=== PATIENT | female | born 1935 | race Caucasian/White ===

== ENCOUNTER 2018-12-05 00:05 | Observation (INO) | payer MEDICARE ==
[2018-12-05] MEDS ORDERED: Nitroglycerin 0.4 MG Tab.SL SL ONE (01:00)
--- NOTE | 2018-12-05 01:04 | EDM.PDOC ---
ED HPI GENERAL MEDICAL PROBLEM - General Chief Complaint: Neurological Problem Stated Complaint: CONFUSION Time Seen by Provider: 12/05/18 00:54 Source of Information: Reports: Patient, EMS, RN Notes Reviewed History Limitations: Reports: Physical Impairment - History of Present Illness INITIAL COMMENTS - FREE TEXT/NARRATIVE: 83-year-old female presents emergency department today via EMS services, she was found standing outside 8 is less than 20 she believes she was waiting for the bus. There is some question of underlying dementia discussion with family members they are planning to get her into an assisted living facility this week. She complains of body pain all over Right Upper Abdomen Pain Score (Numeric/FACES): 4 - Related Data Allergies Allergy/AdvReac Type Severity Reaction Status Date / Time atorvastatin [From Lipitor] Allergy Cannot Verified 12/05/18 01:24 Remember naproxen AdvReac Itching Verified 12/05/18 01:24 Home Meds: Home Meds Aspirin 81 mg PO DAILY 12/05/18 [History] Donepezil HCl [Aricept] 10 mg PO BEDTIME 12/05/18 [History] Loratadine [Claritin] 10 mg PO DAILY PRN 12/05/18 [History] Memantine HCl [Namenda] 10 mg PO DAILY 12/05/18 [History] Metoprolol Tartrate [Lopressor] 50 mg PO DAILY 12/05/18 [History] Potassium Chloride [Klor-Con M20] 20 meq PO DAILY 12/05/18 [History] Simvastatin [Zocor] 80 mg PO DAILY 12/05/18 [History] amLODIPine Besylate [Norvasc] 5 mg PO DAILY 12/05/18 [History] guaiFENesin [Mucinex] 600 mg PO Q12H PRN 12/05/18 [History] Past Medical History Cardiovascular History: Reports: Hypertension Neurological History: Reports: Other (See Below) (Dementia) Social & Family History - Tobacco Use Smoking Status *Q: Former Smoker Used Tobacco, but Quit: Yes Month/Year Tobacco Last Used: 09/1960 Second Hand Smoke Exposure: No - Caffeine Use Caffeine Use: Reports: Coffee - Recreational Drug Use Recreational Drug Use: No ED ROS GENERAL - Review of Systems Review Of Systems: Unable To Obtain ED EXAM, NEURO - Physical Exam Exam: See Below Text/Narrative:: General: Elderly female not in any distress, alert and oriented x1 HEENT: head is atraumatic normocephalic, eyes pupils equal round reactive to light, sclera clear no conjunctivitis appreciated. Ears tympanic membranes clear and fam landmarks and light reflex are present bilaterally canals are clear. Nose no septal deviation, nares are clear, no blood present. Mouth mucosa is moist and pink no erythema or exudate noted in soft palate, tongue is midline uvula is midline, dentures in place. Neck: Supple no thyromegaly no tracheal deviation. Nodes: Cervical nodes subclavicular nodes nontender no palpable lymphadenopathy noted. Lungs: clear to auscultation bilaterally with symmetrical respirations, no adventitious noise appreciated. CV: Regular rate and rhythm S1 and S2 appreciated no murmurs rubs or gallops noted. Abdomen: Soft, nontender, no palpable masses or organomegaly appreciated, no distention no guarding bowel sounds are present, Neuro: Cranial nerves II through XII intact, GCS 15 Skin: Warm and dry, intact Extremities: No lower extremity edema appreciated, Course - Vital Signs Last Recorded V/S: Last Vital Signs Temp 95 F L 12/05/18 01:17 Pulse 77 12/05/18 01:17 Resp 16 12/05/18 01:17 BP 163/74 H 12/05/18 01:17 Pulse Ox 93 L 12/05/18 01:17 - Orders/Labs/Meds Labs: Laboratory Tests 12/05/18 12/05/18 12/05/18 Range/Units 00:59 00:59 01:05 WBC 6.2 (4.5-11.0) K/uL RBC 4.10 (3.30-5.50) M/uL Hgb 11.8 L (12.0-15.0) g/dL Hct 38.0 (36.0-48.0) % MCV 93 (80-98) fL MCH 29 (27-31) pg MCHC 31 L (32-36) % Plt Count 189 (150-400) K/uL Neut % (Auto) 68 H (36-66) % Lymph % (Auto) 21 L (24-44) % Ellis % (Auto) 7 H (2-6) % Eos % (Auto) 3 (2-4) % Baso % (Auto) 1 (0-1) % Sodium (140-148) mmol/L Potassium (3.6-5.2) mmol/L Chloride (100-108) mmol/L Carbon Dioxide (21-32) mmol/L Anion Gap (5.0-14.0) mmol/L BUN (7-18) mg/dL Creatinine (0.6-1.0) mg/dL Est Cr Clr Drug Dosing mL/min Estimated GFR (MDRD) (>60) Glucose (74-106) mg/dL Lactic Acid (0.4-2.0) mmol/L Calcium (8.5-10.1) mg/dL Total Bilirubin (0.2-1.0) mg/dL AST (15-37) U/L ALT (12-78) U/L Alkaline Phosphatase (46-116) U/L Ammonia (11-32) mmol/L Troponin I (0.000-0.056) ng/mL Total Protein (6.4-8.2) g/dL Albumin (3.4-5.0) g/dL Globulin (2.3-3.5) g/dL Albumin/Globulin Ratio (1.2-2.2) Lipase (73-393) U/L TSH, Ultra Sensitive (0.358-3.740) uIU/mL Urine Color Yellow Urine Appearance Clear Urine pH 7.0 (4.5-8.0) Ur Specific [place] 1.010 (1.008-1.030) Urine Protein Negative (NEGATIVE) mg/dL Urine Glucose (UA) Normal (NEGATIVE) mg/dL Urine Ketones Negative (NEGATIVE) mg/dL Urine Occult Blood Negative (NEGATIVE) Urine Nitrite Negative (NEGATIVE) Urine Bilirubin Negative (NEGATIVE) Urine Urobilinogen Normal (NORMAL) mg/dL Ur Leukocyte Esterase Negative (NEGATIVE) Urine RBC 0-5 (0-5) Urine WBC 0-5 (0-5) Ur Epithelial Cells Not seen Amorphous Sediment Not seen Urine Bacteria Few Urine Mucus Not seen Urine Opiates Screen Negative (NEGATIVE) Ur Oxycodone Screen Negative (NEGATIVE) Urine Methadone Screen Negative (NEGATIVE) Ur Propoxyphene Screen Negative (NEGATIVE) Ur Barbiturates Screen Negative (NEGATIVE) Ur Tricyclics Screen Negative (NEGATIVE) Ur Phencyclidine Scrn Negative (NEGATIVE) Ur Amphetamine Screen Negative (NEGATIVE) U Methamphetamines Scrn Negative (NEGATIVE) Urine MDMA Screen Negative (NEGATIVE) U Benzodiazepines Scrn Negative (NEGATIVE) U Cocaine Metab Screen Negative (NEGATIVE) U Marijuana (THC) Screen Negative (NEGATIVE) Ethyl Alcohol mg/dL 12/05/18 12/05/18 12/05/18 Range/Units 01:05 01:05 01:05 WBC (4.5-11.0) K/uL RBC (3.30-5.50) M/uL Hgb (12.0-15.0) g/dL Hct (36.0-48.0) % MCV (80-98) fL MCH (27-31) pg MCHC (32-36) % Plt Count (150-400) K/uL Neut % (Auto) (36-66) % Lymph % (Auto) (24-44) % Ellis % (Auto) (2-6) % Eos % (Auto) (2-4) % Baso % (Auto) (0-1) % Sodium 140 (140-148) mmol/L Potassium 3.3 L (3.6-5.2) mmol/L Chloride 103 (100-108) mmol/L Carbon Dioxide 31 (21-32) mmol/L Anion Gap 9.3 (5.0-14.0) mmol/L BUN 15 (7-18) mg/dL Creatinine 1.1 H (0.6-1.0) mg/dL Est Cr Clr Drug Dosing 30.11 mL/min Estimated GFR (MDRD) 47 L (>60) Glucose 128 H (74-106) mg/dL Lactic Acid 1.4 (0.4-2.0) mmol/L Calcium 8.8 (8.5-10.1) mg/dL Total Bilirubin 0.3 (0.2-1.0) mg/dL AST 25 (15-37) U/L ALT 18 (12-78) U/L Alkaline Phosphatase 95 (46-116) U/L Ammonia 8 L (11-32) mmol/L Troponin I 0.032 (0.000-0.056) ng/mL Total Protein 6.5 (6.4-8.2) g/dL Albumin 3.2 L (3.4-5.0) g/dL Globulin 3.3 (2.3-3.5) g/dL Albumin/Globulin Ratio 1.0 L (1.2-2.2) Lipase 182 (73-393) U/L TSH, Ultra Sensitive 1.540 (0.358-3.740) uIU/mL Urine Color Urine Appearance Urine pH (4.5-8.0) Ur Specific [place] (1.008-1.030) Urine Protein (NEGATIVE) mg/dL Urine Glucose (UA) (NEGATIVE) mg/dL Urine Ketones (NEGATIVE) mg/dL Urine Occult Blood (NEGATIVE) Urine Nitrite (NEGATIVE) Urine Bilirubin (NEGATIVE) Urine Urobilinogen (NORMAL) mg/dL Ur Leukocyte Esterase (NEGATIVE) Urine RBC (0-5) Urine WBC (0-5) Ur Epithelial Cells Amorphous Sediment Urine Bacteria Urine Mucus Urine Opiates Screen (NEGATIVE) Ur Oxycodone Screen (NEGATIVE) Urine Methadone Screen (NEGATIVE) Ur Propoxyphene Screen (NEGATIVE) Ur Barbiturates Screen (NEGATIVE) Ur Tricyclics Screen (NEGATIVE) Ur Phencyclidine Scrn (NEGATIVE) Ur Amphetamine Screen (NEGATIVE) U Methamphetamines Scrn (NEGATIVE) Urine MDMA Screen (NEGATIVE) U Benzodiazepines Scrn (NEGATIVE) U Cocaine Metab Screen (NEGATIVE) U Marijuana (THC) Screen (NEGATIVE) Ethyl Alcohol mg/dL 12/05/18 Range/Units 01:05 WBC (4.5-11.0) K/uL RBC (3.30-5.50) M/uL Hgb (12.0-15.0) g/dL Hct (36.0-48.0) % MCV (80-98) fL MCH (27-31) pg MCHC (32-36) % Plt Count (150-400) K/uL Neut % (Auto) (36-66) % Lymph % (Auto) (24-44) % Ellis % (Auto) (2-6) % Eos % (Auto) (2-4) % Baso % (Auto) (0-1) % Sodium (140-148) mmol/L Potassium (3.6-5.2) mmol/L Chloride (100-108) mmol/L Carbon Dioxide (21-32) mmol/L Anion Gap (5.0-14.0) mmol/L BUN (7-18) mg/dL Creatinine (0.6-1.0) mg/dL Est Cr Clr Drug Dosing mL/min Estimated GFR (MDRD) (>60) Glucose (74-106) mg/dL Lactic Acid (0.4-2.0) mmol/L Calcium (8.5-10.1) mg/dL Total Bilirubin (0.2-1.0) mg/dL AST (15-37) U/L ALT (12-78) U/L Alkaline Phosphatase (46-116) U/L Ammonia (11-32) mmol/L Troponin I (0.000-0.056) ng/mL Total Protein (6.4-8.2) g/dL Albumin (3.4-5.0) g/dL Globulin (2.3-3.5) g/dL Albumin/Globulin Ratio (1.2-2.2) Lipase (73-393) U/L TSH, Ultra Sensitive (0.358-3.740) uIU/mL Urine Color Urine Appearance Urine pH (4.5-8.0) Ur Specific [place] (1.008-1.030) Urine Protein (NEGATIVE) mg/dL Urine Glucose (UA) (NEGATIVE) mg/dL Urine Ketones (NEGATIVE) mg/dL Urine Occult Blood (NEGATIVE) Urine Nitrite (NEGATIVE) Urine Bilirubin (NEGATIVE) Urine Urobilinogen (NORMAL) mg/dL Ur Leukocyte Esterase (NEGATIVE) Urine RBC (0-5) Urine WBC (0-5) Ur Epithelial Cells Amorphous Sediment Urine Bacteria Urine Mucus Urine Opiates Screen (NEGATIVE) Ur Oxycodone Screen (NEGATIVE) Urine Methadone Screen (NEGATIVE) Ur Propoxyphene Screen (NEGATIVE) Ur Barbiturates Screen (NEGATIVE) Ur Tricyclics Screen (NEGATIVE) Ur Phencyclidine Scrn (NEGATIVE) Ur Amphetamine Screen (NEGATIVE) U Methamphetamines Scrn (NEGATIVE) Urine MDMA Screen (NEGATIVE) U Benzodiazepines Scrn (NEGATIVE) U Cocaine Metab Screen (NEGATIVE) U Marijuana (THC) Screen (NEGATIVE) Ethyl Alcohol < 3 mg/dL Meds: Medications Discontinued Medications Generic Name Dose Route Start Last Admin Trade Name Freq PRN Reason Stop Dose Admin Nitroglycerin 0.4 mg 12/05/18 01:00 12/05/18 01:09 Nitrostat SL 12/05/18 01:01 0.4 mg ONETIME ONE Administration Departure - Departure Time of Disposition: 03:05 Disposition: Refer to Observation Condition: Poor Clinical Impression: Dementia Qualifiers: Dementia type: unspecified type Dementia behavioral disturbance: without behavioral disturbance Qualified Code(s): F03.90 - Unspecified dementia without behavioral disturbance - Discharge Information Referrals: PCP,None [Primary Care Provider] - Forms: ED Department Discharge - Assessment/Plan Plan: Assessment Acuity = acute Site and laterality = dementia Etiology = unknown etiology Manifestations = none Location of injury = Home Lab values = CBC, CMP, TSH, urinalysis, urine drug screen, alcohol, CT scan of the head show no acute process Plan Called discussed case with hospitalist talent acquisition coordinator at 3:00 he agreed to admission plan is to see her in the hospital she will be admitted for observation no family members are present will have discharge planning work on placement later today This note was dictated using [employer] voice recognition software please call with any questions on syntax or grammar.
--- NOTE | 2018-12-05 01:54 | CRLCT ---
INDICATION: Altered mental status COMPARISON: None available. TECHNIQUE: CT examination of the head was performed with 3 mm thick axial sections without intravenous contrast. Images were obtained from the vertex of the skull through the skull base, and I examined the images with the brain and bone windows. Please note that all CT scans at this facility use dose modulation, iterative reconstruction, and/or weight-based dosing when appropriate to reduce radiation dose to as low as reasonably achievable. FINDINGS: : The brain is normal in appearance for the patient`s age on today`s study, with no sign of mass lesion, mass effect, hemorrhage, or edema. There is moderate dilatation of the ventricles and sulci representing age-appropriate atrophy. There is moderate periventricular and subcortical white matter hypodensity from age appropriate small vessel ischemia. The visualized portions of the orbits are normal in appearance status post cataract surgery. The visualized portions of the paranasal sinuses and mastoids are clear. The osseous structures are normal in their appearance with no sign of abnormality in the skull base or calvarium. IMPRESSION: Normal noncontrast CT of the head for the patient`s age. Moderate, age-appropriate atrophy and small-vessel ischemic changes. Please note that all CT scans at this facility use dose modulation, iterative reconstruction, and/or weight-based dosing when appropriate to reduce radiation dose to as low as reasonably achievable. Dictated by Rayshawn Jeffrey MD @ Dec 05 2018 1:50AM Signed by Dr. Rayshawn Jeffrey @ Dec 05 2018 1:52AM
[2018-12-05] MEDS ORDERED: diphenhydrAMINE 25 MG Cap PO PRN (03:09)
[2018-12-05] MEDS ORDERED: Simvastatin 20 MG Tab PO SCH (09:00)
[2018-12-05] MEDS ORDERED: Metoprolol Tartrate 50 MG Tab PO SCH (09:00)
[2018-12-05] MEDS: Metoprolol Tartrate 25 MG Tab PO SCH (09:42)
[2018-12-05] MEDS: amLODIPine 5 MG Tab PO SCH (09:43)
[2018-12-05] MEDS: Aspirin 81 MG Tab.EC PO SCH (09:43)
[2018-12-05] MEDS: Potassium Chloride 20 MEQ Tab.ER PO SCH (09:43)
[2018-12-05] MEDS: Memantine 10 MG Tab PO SCH (09:44)
--- NOTE | 2018-12-05 09:58 | PCM.HP ---
H&P History of Present Illness - General Date of Service: 12/05/18 Admit Problem/Dx: Admission Diagnosis/Problem Admission Diagnosis/Problem Dementia Source of Information: Patient, Family, Provider History Limitations: Reports: Other (dementia) - History of Present Illness Initial Comments - Free Text/Narative: Sharon presented to the emergency room from her apartment where she was found standing outside last night allegedly waiting for the bus. She has what appears to be fairly advanced dementia and has difficulty providing much of the history. Her memory for recent events is extremely limited. She does not recall much from yesterday but does say that she was standing out waiting for the bus. She does endorse being dressed appropriately. She had no idea that it was 11 PM on Thursday night and thought it was 11 AM on Thursday morning. She says that she feels fine and wants to go home. No complaints of shortness of breath or abdominal pain. She doesn't think she's had any fevers. She thinks everything is going just fine at home. I did talk to her [id number] Leighann who felt that things were going very poorly at home. She believes that things have gone downhill over the last 2 months especially. Family reports that she has been outside going through people's cars looking for an imaginary friend. She has had several falls. They don't believe this is the first time she's had her times mixed up waiting for the bus. I don't believe she's been taking her medications and her blood pressure was very high at 230 last night when she got here. Workup in the emergency room was fairly unremarkable. She was thought to be very unsafe to discharge to home so she was admitted for observation and discharge planning. Right Upper Abdomen Pain Score (Numeric/FACES): 0 - Related Data Allergies/Adverse Reactions: Allergies Allergy/AdvReac Type Severity Reaction Status Date / Time atorvastatin [From Lipitor] Allergy Cannot Verified 12/05/18 01:24 Remember naproxen AdvReac Itching Verified 12/05/18 01:24 Home Medications: Home Meds Aspirin 81 mg PO DAILY 12/05/18 [History] Donepezil HCl [Aricept] 10 mg PO BEDTIME 12/05/18 [History] Loratadine [Claritin] 10 mg PO DAILY PRN 12/05/18 [History] Memantine HCl [Namenda] 10 mg PO DAILY 12/05/18 [History] Metoprolol Tartrate [Lopressor] 50 mg PO DAILY 12/05/18 [History] Potassium Chloride [Klor-Con M20] 20 meq PO DAILY 12/05/18 [History] Simvastatin [Zocor] 80 mg PO DAILY 12/05/18 [History] amLODIPine Besylate [Norvasc] 5 mg PO DAILY 12/05/18 [History] guaiFENesin [Mucinex] 600 mg PO Q12H PRN 12/05/18 [History] Past Medical History HEENT History: Reports: Allergic Rhinitis, Cataract, Impaired Vision Cardiovascular History: Reports: Hypertension Other Cardiovascular History: subclavian artery stenosis, aortic stenosis, iliac artery stenosis, carotid stenosis Respiratory History: Reports: COPD [employer]PER[employer]OR DIALS History: Reports: Musculoskeletal History: Reports: Arthritis Neurological History: Reports: Other (See Below) Psychiatric History: Reports: Dementia Endocrine/Metabolic History: Reports: Vitamin D Deficiency - Past Surgical History HEENT Surgical History: Reports: Cataract Surgery GI Surgical History: Reports: Appendectomy Musculoskeletal Surgical History: Reports: Hip Replacement, Knee Replacement, Shoulder Surgery Other Musculoskeletal Surgeries/Procedures:: rotator cuff surg Social & Family History - Family History Family Medical History: Unobtainable - Tobacco Use Smoking Status *Q: Unknown Ever Smoked Used Tobacco, but Quit: Yes Month/Year Tobacco Last Used: 09/1960 Second Hand Smoke Exposure: No - Caffeine Use Caffeine Use: Reports: Coffee - Alcohol Use Alcohol Use History: No - Recreational Drug Use Recreational Drug Use: No H&P Review of Systems - Review of Systems: Review Of Systems: See Below Free Text/Narrative: A complete 12 point review of systems was obtained. Pertinent positives and negatives are noted in the history of present illness. All other systems were reviewed and were negative except as noted. She did answer the questions but I' m not sure of the validity of the answers. Exam - Exam Exam: See Below - Vital Signs Vital Signs: Last Vital Signs Temp 36.3 C 12/05/18 07:24 Pulse 58 L 12/05/18 09:42 Resp 16 12/05/18 07:24 BP 185/67 H 12/05/18 09:43 Pulse Ox 90 L 12/05/18 07:24 Weight: 56.245 kg - Exam Quality Assessment: No: Supplemental Oxygen General: Alert, Cooperative. No: Oriented, Mild Distress HEENT: Conjunctiva Clear, Mucosa Moist & [place]. No: Scleral Icterus Neck: Supple. No: Lymphadenopathy Lungs: Clear to Auscultation, Normal Respiratory Effort Cardiovascular: Regular Rate, Regular Rhythm, Systolic Murmur (LLSB) GI/Abdominal Exam: Normal Bowel Sounds, Soft, Non-Tender, No Distention Back Exam: Normal Inspection Extremities: No Pedal Edema. No: Increased Warmth Peripheral Pulses: 2+: Dorsalis Pedis (L), Dorsalis Pedis (R) Skin: Warm, Dry Neuro Extensive - Mental Status: Alert, Nl Response to Commands. No: Oriented x3 Neuro Extensive - Motor, Sensory, Reflexes: No: Dysarthria, Abnormal Motor, Tremor Psychiatric: Alert, Normal Affect, Other (memory loss, recent events) - Patient Data Lab Results Last 24 hrs: Laboratory Results - last 24 hr 12/05/18 12/05/18 12/05/18 Range/Units 00:59 00:59 01:05 WBC 6.2 (4.5-11.0) K/uL RBC 4.10 (3.30-5.50) M/uL Hgb 11.8 L (12.0-15.0) g/dL Hct 38.0 (36.0-48.0) % MCV 93 (80-98) fL MCH 29 (27-31) pg MCHC 31 L (32-36) % Plt Count 189 (150-400) K/uL Neut % (Auto) 68 H (36-66) % Lymph % (Auto) 21 L (24-44) % [place] % (Auto) 7 H (2-6) % Eos % (Auto) 3 (2-4) % Baso % (Auto) 1 (0-1) % Sodium (140-148) mmol/L Potassium (3.6-5.2) mmol/L Chloride (100-108) mmol/L Carbon Dioxide (21-32) mmol/L Anion Gap (5.0-14.0) mmol/L BUN (7-18) mg/dL Creatinine (0.6-1.0) mg/dL Est Cr Clr Drug Dosing mL/min Estimated GFR (MDRD) (>60) Glucose (74-106) mg/dL Lactic Acid (0.4-2.0) mmol/L Calcium (8.5-10.1) mg/dL Total Bilirubin (0.2-1.0) mg/dL AST (15-37) U/L ALT (12-78) U/L Alkaline Phosphatase (46-116) U/L Ammonia (11-32) mmol/L Troponin I (0.000-0.056) ng/mL Total Protein (6.4-8.2) g/dL Albumin (3.4-5.0) g/dL Globulin (2.3-3.5) g/dL Albumin/Globulin Ratio (1.2-2.2) Lipase (73-393) U/L TSH, Ultra Sensitive (0.358-3.740) uIU/mL Urine Color Yellow Urine Appearance Clear Urine pH 7.0 (4.5-8.0) Ur Specific Renick 1.010 (1.008-1.030) Urine Protein Negative (NEGATIVE) mg/dL Urine Glucose (UA) Normal (NEGATIVE) mg/dL Urine Ketones Negative (NEGATIVE) mg/dL Urine Occult Blood Negative (NEGATIVE) Urine Nitrite Negative (NEGATIVE) Urine Bilirubin Negative (NEGATIVE) Urine Urobilinogen Normal (NORMAL) mg/dL Ur Leukocyte Esterase Negative (NEGATIVE) Urine RBC 0-5 (0-5) Urine WBC 0-5 (0-5) Ur Epithelial Cells Not seen Amorphous Sediment Not seen Urine Bacteria Few Urine Mucus Not seen Urine Opiates Screen Negative (NEGATIVE) Ur Oxycodone Screen Negative (NEGATIVE) Urine Methadone Screen Negative (NEGATIVE) Ur Propoxyphene Screen Negative (NEGATIVE) Ur Barbiturates Screen Negative (NEGATIVE) Ur Tricyclics Screen Negative (NEGATIVE) Ur Phencyclidine Scrn Negative (NEGATIVE) Ur Amphetamine Screen Negative (NEGATIVE) U Methamphetamines Scrn Negative (NEGATIVE) Urine MDMA Screen Negative (NEGATIVE) U Benzodiazepines Scrn Negative (NEGATIVE) U Cocaine Metab Screen Negative (NEGATIVE) U Marijuana (THC) Screen Negative (NEGATIVE) Ethyl Alcohol mg/dL 12/05/18 12/05/18 12/05/18 Range/Units 01:05 01:05 01:05 WBC (4.5-11.0) K/uL RBC (3.30-5.50) M/uL Hgb (12.0-15.0) g/dL Hct (36.0-48.0) % MCV (80-98) fL MCH (27-31) pg MCHC (32-36) % Plt Count (150-400) K/uL Neut % (Auto) (36-66) % Lymph % (Auto) (24-44) % [place] % (Auto) (2-6) % Eos % (Auto) (2-4) % Baso % (Auto) (0-1) % Sodium 140 (140-148) mmol/L Potassium 3.3 L (3.6-5.2) mmol/L Chloride 103 (100-108) mmol/L Carbon Dioxide 31 (21-32) mmol/L Anion Gap 9.3 (5.0-14.0) mmol/L BUN 15 (7-18) mg/dL Creatinine 1.1 H (0.6-1.0) mg/dL Est Cr Clr Drug Dosing 30.11 mL/min Estimated GFR (MDRD) 47 L (>60) Glucose 128 H (74-106) mg/dL Lactic Acid 1.4 (0.4-2.0) mmol/L Calcium 8.8 (8.5-10.1) mg/dL Total Bilirubin 0.3 (0.2-1.0) mg/dL AST 25 (15-37) U/L ALT 18 (12-78) U/L Alkaline Phosphatase 95 (46-116) U/L Ammonia 8 L (11-32) mmol/L Troponin I 0.032 (0.000-0.056) ng/mL Total Protein 6.5 (6.4-8.2) g/dL Albumin 3.2 L (3.4-5.0) g/dL Globulin 3.3 (2.3-3.5) g/dL Albumin/Globulin Ratio 1.0 L (1.2-2.2) Lipase 182 (73-393) U/L TSH, Ultra Sensitive 1.540 (0.358-3.740) uIU/mL Urine Color Urine Appearance Urine pH (4.5-8.0) Ur Specific Renick (1.008-1.030) Urine Protein (NEGATIVE) mg/dL Urine Glucose (UA) (NEGATIVE) mg/dL Urine Ketones (NEGATIVE) mg/dL Urine Occult Blood (NEGATIVE) Urine Nitrite (NEGATIVE) Urine Bilirubin (NEGATIVE) Urine Urobilinogen (NORMAL) mg/dL Ur Leukocyte Esterase (NEGATIVE) Urine RBC (0-5) Urine WBC (0-5) Ur Epithelial Cells Amorphous Sediment Urine Bacteria Urine Mucus Urine Opiates Screen (NEGATIVE) Ur Oxycodone Screen (NEGATIVE) Urine Methadone Screen (NEGATIVE) Ur Propoxyphene Screen (NEGATIVE) Ur Barbiturates Screen (NEGATIVE) Ur Tricyclics Screen (NEGATIVE) Ur Phencyclidine Scrn (NEGATIVE) Ur Amphetamine Screen (NEGATIVE) U Methamphetamines Scrn (NEGATIVE) Urine MDMA Screen (NEGATIVE) U Benzodiazepines Scrn (NEGATIVE) U Cocaine Metab Screen (NEGATIVE) U Marijuana (THC) Screen (NEGATIVE) Ethyl Alcohol mg/dL 12/05/18 Range/Units 01:05 WBC (4.5-11.0) K/uL RBC (3.30-5.50) M/uL Hgb (12.0-15.0) g/dL Hct (36.0-48.0) % MCV (80-98) fL MCH (27-31) pg MCHC (32-36) % Plt Count (150-400) K/uL Neut % (Auto) (36-66) % Lymph % (Auto) (24-44) % [place] % (Auto) (2-6) % Eos % (Auto) (2-4) % Baso % (Auto) (0-1) % Sodium (140-148) mmol/L Potassium (3.6-5.2) mmol/L Chloride (100-108) mmol/L Carbon Dioxide (21-32) mmol/L Anion Gap (5.0-14.0) mmol/L BUN (7-18) mg/dL Creatinine (0.6-1.0) mg/dL Est Cr Clr Drug Dosing mL/min Estimated GFR (MDRD) (>60) Glucose (74-106) mg/dL Lactic Acid (0.4-2.0) mmol/L Calcium (8.5-10.1) mg/dL Total Bilirubin (0.2-1.0) mg/dL AST (15-37) U/L ALT (12-78) U/L Alkaline Phosphatase (46-116) U/L Ammonia (11-32) mmol/L Troponin I (0.000-0.056) ng/mL Total Protein (6.4-8.2) g/dL Albumin (3.4-5.0) g/dL Globulin (2.3-3.5) g/dL Albumin/Globulin Ratio (1.2-2.2) Lipase (73-393) U/L TSH, Ultra Sensitive (0.358-3.740) uIU/mL Urine Color Urine Appearance Urine pH (4.5-8.0) Ur Specific Renick (1.008-1.030) Urine Protein (NEGATIVE) mg/dL Urine Glucose (UA) (NEGATIVE) mg/dL Urine Ketones (NEGATIVE) mg/dL Urine Occult Blood (NEGATIVE) Urine Nitrite (NEGATIVE) Urine Bilirubin (NEGATIVE) Urine Urobilinogen (NORMAL) mg/dL Ur Leukocyte Esterase (NEGATIVE) Urine RBC (0-5) Urine WBC (0-5) Ur Epithelial Cells Amorphous Sediment Urine Bacteria Urine Mucus Urine Opiates Screen (NEGATIVE) Ur Oxycodone Screen (NEGATIVE) Urine Methadone Screen (NEGATIVE) Ur Propoxyphene Screen (NEGATIVE) Ur Barbiturates Screen (NEGATIVE) Ur Tricyclics Screen (NEGATIVE) Ur Phencyclidine Scrn (NEGATIVE) Ur Amphetamine Screen (NEGATIVE) U Methamphetamines Scrn (NEGATIVE) Urine MDMA Screen (NEGATIVE) U Benzodiazepines Scrn (NEGATIVE) U Cocaine Metab Screen (NEGATIVE) U Marijuana (THC) Screen (NEGATIVE) Ethyl Alcohol < 3 mg/dL Result Diagrams: 12/05/18 01:05 12/05/18 01:05 Imaging Impressions Last 24 hrs: Head CT - images personally reviewed - no acute findings. No mass, bleed or stroke. *Q Meaningful Use (ADM) - VTE Risk Assess *Q Each Risk Factor Represents 1 Point: None Total Score 1 Point Risk Factors: 0 Each Risk Factor Represents 2 Points: None Total Score 2 Point Risk Factors: 0 Each Risk Factor Represents 3 Points: Age 75 Years or Greater Total Score 3 Point Risk Factors: 3 Each Risk Factor Represents 5 Points: None Total Score 5 Point Risk Factors: 0 Venous Thromboembolism Risk Factor Score *Q: 3 - Problem List (1) Alzheimer's dementia with behavioral disturbance SNOMED Code(s): 1297075821538 ICD Code: G30.9 - ALZHEIMER'S DISEASE, UNSPECIFIED; F02.81 - DEMENTIA IN OTH DISEASES CLASSD ELSWHR W BEHAVIORAL DISTURB Status: Acute Current Visit: Yes Qualifiers: Alzheimer's disease onset: late-onset Qualified Code(s): G30.1 - Alzheimer' s disease with late onset; F02.81 - Dementia in other diseases classified elsewhere with behavioral disturbance (2) Essential hypertension SNOMED Code(s): 94839455 ICD Code: I10 - ESSENTIAL (PRIMARY) HYPERTENSION Status: Chronic Current Visit: Yes Problem List Initiated/Reviewed/Updated: Yes Orders Last 24hrs: Active Orders 24 hr Category Date Time Status Patient Status [ADT] Routine ADT 12/05/18 03:07 Active Antiembolic Devices [RC] .Routine Care 12/05/18 08:10 Active Height and Weight [RC] DAILY Care 12/05/18 03:07 Active Intake and Output [RC] QSHIFT Care 12/05/18 03:08 Active Oxygen Therapy [RC] PRN Care 12/05/18 03:07 Active Up With Assistance [RC] ASDIRECTED Care 12/05/18 03:07 Active VTE/DVT Education [RC] Per Unit Routine Care 12/05/18 03:07 Active Vital Signs [RC] Q4H Care 12/05/18 03:07 Active Regular Diet [DIET] Diet 12/05/18 Breakfast Active BASIC METABOLIC PANEL,BMP [CHEM] Timed Lab 12/06/18 05:00 Ordered Aspirin [Halfprin] Med 12/05/18 09:00 Active 81 mg PO DAILY Donepezil [Aricept] Med 12/05/18 21:00 Active 10 mg PO BEDTIME Memantine [Namenda] Med 12/05/18 09:00 Active 10 mg PO DAILY Metoprolol Tartrate [Lopressor] Med 12/05/18 09:00 Active 25 mg PO BID Potassium Chloride [Klor-Con M20] Med 12/05/18 09:00 Active 20 meq PO DAILY Potassium Chloride [Klor-Con M20] Med 12/05/18 10:00 Once 20 meq PO ONETIME ONE Simvastatin [Zocor] Med 12/05/18 21:00 Active 80 mg PO BEDTIME amLODIPine [Norvasc] Med 12/05/18 09:00 Active 5 mg PO DAILY diphenhydrAMINE [Benadryl] Med 12/05/18 03:09 Active 25 mg PO BEDTIME PRN VINICIUS Hose [Antiembolic Hose] [OM.PC] Routine Oth 12/05/18 08:10 Ordered Resuscitation Status Routine Resus Stat 12/05/18 03:07 Ordered Medication Orders Amlodipine Besylate (Norvasc) 5 mg PO DAILY [facility] Last Admin: 12/05/18 09:43 Dose: 5 mg Aspirin (Halfprin) 81 mg PO DAILY [facility] Last Admin: 12/05/18 09:43 Dose: 81 mg Diphenhydramine HCl (Benadryl) 25 mg PO BEDTIME PRN PRN Reason: Sleep Donepezil HCl (Aricept) 10 mg PO BEDTIME [facility] Memantine (Namenda) 10 mg PO DAILY [facility] Last Admin: 12/05/18 09:44 Dose: 10 mg Metoprolol Tartrate (Lopressor) 25 mg PO BID [facility] Last Admin: 12/05/18 09:42 Dose: 25 mg Potassium Chloride (Klor-Con M20) 20 meq PO DAILY [facility] Last Admin: 12/05/18 09:43 Dose: 20 meq Potassium Chloride (Klor-Con M20) 20 meq PO ONETIME ONE Stop: 12/05/18 10:01 Last Admin: 12/05/18 09:41 Dose: 20 meq Simvastatin (Zocor) 80 mg PO BEDTIME [facility] Assessment/Plan Comment:: ASSESSMENT AND PLAN - Alzheimer's dementia with behavioral disturbance - she is not agitated at this time but has had a progressive decline per family's report. They report that she has been searching for an imaginary friend. Things have been going downhill with regards to her ability to care for herself and her safety per their report. She does not appear to be taking her medications. She tells me that she does not need to take them anymore. I believe she is very unsafe to return to her current living situation. Plans are in process admission to an assisted living facility in [place]. -Admit to observation -Melatonin at bedtime -Continue home medications memantine and donepezil -Consider antipsychotic if behavior escalates -Discharge planning consultation to discuss discharge plans to [facility] in [place] Essential hypertension - significant blood pressure elevation at the time of arrival but it is doubtful that patient has been taking her medications. -Metoprolol tartrate 25 mg twice a day -Amlodipine 5 mg daily, titrate to 10 if needed Maintenance issues - - DVT prophylaxis - VINICIUS stockings - GI prophylaxis - not indicated - Nutrition - regular diet - Bai catheter - not indicated CODE STATUS - unable to review advance directive with patients, full code and is presumed Admission justification - patient has been referred observation for safe discharge planning Disposition - I would anticipate discharge to assisted living or possibly long-term facility Primary care physician Zen Curtis in [place] M.D.
[2018-12-05] MEDS ORDERED: Potassium Chloride 20 MEQ Tab.ER PO ONE (10:00)
[2018-12-06] MEDS: Melatonin 3 MG Tab PO SCH ×2 (01:27→20:31)
[2018-12-06] MEDS: Simvastatin 20 MG Tab PO SCH ×2 (01:27→20:32)
[2018-12-06] MEDS: Donepezil 10 MG Tab PO SCH ×2 (01:27→20:30)
[2018-12-06] MEDS: Metoprolol Tartrate 25 MG Tab PO SCH ×4 (01:27→20:31)
[2018-12-06] MEDS ORDERED: Haloperidol Lactate 5 MG/ML SDV IM PRN (08:46)
[2018-12-06] MEDS: Aspirin 81 MG Tab.EC PO SCH ×2 (10:15→13:43)
[2018-12-06] MEDS: Potassium Chloride 20 MEQ Tab.ER PO SCH ×2 (10:15→13:42)
[2018-12-06] MEDS: Memantine 10 MG Tab PO SCH ×2 (10:16→13:43)
[2018-12-06] MEDS: amLODIPine 5 MG Tab PO SCH ×2 (10:16→13:43)
--- NOTE | 2018-12-06 12:09 | PCM.PN ---
- General Info Date of Service: 12/06/18 Subjective Update: Ms. Johnson is an 83-year-old woman who was admitted yesterday through the emergency department because of increased confusion and inability to care for herself at home. She has a known diagnosis of Alzheimer's type dementia has experienced progressive decline in cognitive function and memory over the past few months. She was found on the road dressed and waiting for the bus at 11 PM at night. She was admitted to facilitate placement in appropriate facility, as it is felt that she is no longer safe to be living independently in the community. Morning she has been more agitated and did attempt to leave the hospital as well as being physically aggressive with staff. This has improved after she was given 2 mg of IM Haldol. She is unable to provide significant information concerning symptoms or review of systems because of her confusion and agitation. - Patient Data Vitals - Most Recent: Last Vital Signs Temp 96.4 F 12/06/18 07:00 Pulse 66 12/06/18 07:00 Resp 18 12/06/18 07:00 BP 178/75 H 12/06/18 07:00 Pulse Ox 94 L 12/06/18 07:00 Weight - Most Recent: 123 lb 15.984 oz I&O - Last 24 Hours: Intake & Output 12/05/18 12/06/18 12/06/18 22:59 06:59 14:59 Intake Total 650 Balance 650 Lab Results Last 24 Hours: Laboratory Results - last 24 hr 12/06/18 Range/Units 05:58 Sodium 140 (140-148) mmol/L Potassium 3.6 (3.6-5.2) mmol/L Chloride 104 (100-108) mmol/L Carbon Dioxide 31 (21-32) mmol/L Anion Gap 5.2 (5.0-14.0) mmol/L BUN 15 (7-18) mg/dL Creatinine 1.0 (0.6-1.0) mg/dL Est Cr Clr Drug Dosing 33.12 mL/min Estimated GFR (MDRD) 53 L (>60) Glucose 96 (74-106) mg/dL Calcium 9.5 (8.5-10.1) mg/dL Med Orders - Current: Current Medications Amlodipine Besylate (Norvasc) 5 mg PO DAILY [facility] Last Admin: 12/06/18 10:16 Dose: Not Given Aspirin (Halfprin) 81 mg PO DAILY [facility] Last Admin: 12/06/18 10:15 Dose: Not Given Diphenhydramine HCl (Benadryl) 25 mg PO BEDTIME PRN PRN Reason: Sleep Divalproex Sodium (Divalproex Sodium) 250 mg PO BIDMEALS [facility] Donepezil HCl (Aricept) 10 mg PO BEDTIME [facility] Last Admin: 12/06/18 01:27 Dose: Not Given Haloperidol Lactate (Haldol) 2 mg IM Q2H PRN PRN Reason: Agitation Melatonin (Melatonin) 9 mg PO BEDTIME [facility] Last Admin: 12/06/18 01:27 Dose: Not Given Memantine (Namenda) 10 mg PO DAILY [facility] Last Admin: 12/06/18 10:16 Dose: Not Given Metoprolol Tartrate (Lopressor) 25 mg PO BID [facility] Last Admin: 12/06/18 10:15 Dose: Not Given Potassium Chloride (Klor-Con M20) 20 meq PO DAILY [facility] Last Admin: 12/06/18 10:15 Dose: Not Given Simvastatin (Zocor) 80 mg PO BEDTIME [facility] Last Admin: 12/06/18 01:27 Dose: Not Given Discontinued Medications Metoprolol Tartrate (Lopressor) 50 mg PO DAILY [facility] Nitroglycerin (Nitrostat) 0.4 mg SL ONETIME ONE Stop: 12/05/18 01:01 Last Admin: 12/05/18 01:09 Dose: 0.4 mg Potassium Chloride (Klor-Con M20) 20 meq PO ONETIME ONE Stop: 12/05/18 10:01 Last Admin: 12/05/18 09:41 Dose: 20 meq - Exam General: Alert, Moderate Distress. No: Oriented, Cooperative Lungs: Clear to Auscultation, Normal Respiratory Effort Cardiovascular: Regular Rate, Regular Rhythm, No Murmurs GI/Abdominal Exam: Soft, Non-Tender, No Organomegaly, No Distention - Problem List Review Problem List Initiated/Reviewed/Updated: Yes - My Orders Last 24 Hours: My Active Orders 12/06/18 08:46 Haloperidol Lactate [Haldol] 2 mg IM Q2H PRN 12/06/18 17:00 Divalproex Sodium 250 mg PO BIDMEALS - Plan Plan:: ASSESSMENT AND PLAN - Alzheimer's dementia with behavioral disturbance - agitated this morning and attempting to leave the hospital -Admit to observation -Melatonin at bedtime -Depakote 250 mg by mouth twice a day -Haldol 2 mg IM every 2 hours as needed for agitation -Continue home medications memantine and donepezil Essential hypertension - significant blood pressure elevation at the time of arrival but it is doubtful that patient has been taking her medications. -Metoprolol tartrate 25 mg twice a day -Amlodipine 5 mg daily, titrate to 10 if needed Maintenance issues - - DVT prophylaxis - VINICIUS stockings - GI prophylaxis - not indicated - Nutrition - regular diet - Bai catheter - not indicated CODE STATUS - unable to review advance directive with patients, full code and is presumed Admission justification - patient has been referred observation for safe discharge planning Disposition - I would anticipate discharge to senior behavioral unit Primary care physician - Ever in [place]
--- NOTE | 2018-12-06 14:20 | PCM.DCSUM1 ---
Discharge Summary - Hospital Course Brief History: Ms. Johnson is an 83-year-old woman who was admitted through the emergency department to observation status, to facilitate appropriate placement and further evaluation of significant cognitive impairment secondary to Alzheimer's dementia. - Discharge Data Discharge Date: 12/07/18 Discharge Disposition: Home, Self-Care 01 Condition: Fair - Discharge Diagnosis/Problem(s) (1) Alzheimer's dementia with behavioral disturbance SNOMED Code(s): 9442486056295 ICD Code: G30.9 - ALZHEIMER'S DISEASE, UNSPECIFIED; F02.81 - DEMENTIA IN OTH DISEASES CLASSD ELSWHR W BEHAVIORAL DISTURB Status: Acute Current Visit: Yes Qualifiers: Alzheimer's disease onset: late-onset Qualified Code(s): G30.1 - Alzheimer' s disease with late onset; F02.81 - Dementia in other diseases classified elsewhere with behavioral disturbance (2) Essential hypertension SNOMED Code(s): 49094799 ICD Code: I10 - ESSENTIAL (PRIMARY) HYPERTENSION Status: Chronic Current Visit: Yes - Patient Summary/Data Hospital Course: Ms. Johnson presented to the emergency room from her apartment where she was found standing outside last night allegedly waiting for the bus. She has what appears to be fairly advanced dementia and has difficulty providing much of the history. Her memory for recent events is extremely limited. She does not recall much from yesterday but does say that she was standing out waiting for the bus. She does endorse being dressed appropriately. She had no idea that it was 11 PM on Thursday night and thought it was 11 AM on Thursday morning. She says that she feels fine and wants to go home. No complaints of shortness of breath or abdominal pain. She doesn't think she's had any fevers. She thinks everything is going just fine at home. I did talk to her [id number] Leighann who felt that things were going very poorly at home. She believes that things have gone downhill over the last 2 months especially. Family reports that she has been outside going through people's cars looking for an imaginary friend. She has had several falls. They don't believe this is the first time she's had her times mixed up waiting for the bus. I don't believe she's been taking her medications and her blood pressure was very high at 230 last night when she got here. Workup in the emergency room was fairly unremarkable. She was thought to be very unsafe to discharge to home so she was admitted for observation and discharge planning. She was admitted to observation status and started on melatonin 9 mg by mouth daily at bedtime. She was fairly quiet through the night without significant behavioral disturbance. The next morning she was more agitated and attempted to leave the hospital. She has been treated with IM Haldol and started on Depakote 250 mg twice daily. Since then she has been placed in the locked unit in the emergency department for her protection. She is not competent to make her own decisions. She remains very confused with extremely poor short-term memory as well as paranoid ideation. She will be discharged to the senior behavioral unit in [facility] for further subspecialty evaluation and management. - Patient Instructions Diet: Usual Diet as Tolerated Activity: As Tolerated Other/Special Instructions: Discharged to senior behavioral unit tomorrow morning, for subspecialty evaluation and management of Alzheimer's dementia with agitation and paranoia. - Discharge Plan *PRESCRIPTION DRUG MONITORING PROGRAM REVIEWED*: Not Applicable *COPY OF PRESCRIPTION DRUG MONITORING REPORT IN PATIENT KEVIN: Not Applicable Home Medications: Home Meds Aspirin 81 mg PO DAILY 12/05/18 [History] Donepezil HCl [Aricept] 10 mg PO BEDTIME 12/05/18 [History] Loratadine [Claritin] 10 mg PO DAILY PRN 12/05/18 [History] Memantine HCl [Namenda] 10 mg PO DAILY 12/05/18 [History] Metoprolol Tartrate [Lopressor] 50 mg PO DAILY 12/05/18 [History] Potassium Chloride [Klor-Con M20] 20 meq PO DAILY 12/05/18 [History] Simvastatin [Zocor] 80 mg PO DAILY 12/05/18 [History] amLODIPine Besylate [Norvasc] 5 mg PO DAILY 12/05/18 [History] guaiFENesin [Mucinex] 600 mg PO Q12H PRN 12/05/18 [History] Divalproex Sodium 250 mg PO BIDMEALS tab.cr 12/06/18 [Rx] Melatonin 9 mg PO BEDTIME tablet 12/06/18 [Rx] Referrals: PCP,None [Primary Care Provider] - - Discharge Summary/Plan Comment DC Time >30 min.: No - Patient Data Vitals - Most Recent: Last Vital Signs Temp 95.0 F L 12/06/18 13:34 Pulse 88 12/06/18 13:42 Resp 20 12/06/18 13:34 BP 191/83 H 12/06/18 13:43 Pulse Ox 95 12/06/18 13:34 Weight - Most Recent: 123 lb 15.984 oz I&O - Last 24 hours: Intake & Output 12/05/18 12/06/18 12/06/18 22:59 06:59 14:59 Intake Total 650 Balance 650 Lab Results - Last 24 hrs: Laboratory Results - last 24 hr 12/06/18 Range/Units 05:58 Sodium 140 (140-148) mmol/L Potassium 3.6 (3.6-5.2) mmol/L Chloride 104 (100-108) mmol/L Carbon Dioxide 31 (21-32) mmol/L Anion Gap 5.2 (5.0-14.0) mmol/L BUN 15 (7-18) mg/dL Creatinine 1.0 (0.6-1.0) mg/dL Est Cr Clr Drug Dosing 33.12 mL/min Estimated GFR (MDRD) 53 L (>60) Glucose 96 (74-106) mg/dL Calcium 9.5 (8.5-10.1) mg/dL Med Orders - Current: Current Medications Amlodipine Besylate (Norvasc) 5 mg PO DAILY [facility] Last Admin: 12/06/18 13:43 Dose: 5 mg Aspirin (Halfprin) 81 mg PO DAILY [facility] Last Admin: 12/06/18 13:43 Dose: 81 mg Diphenhydramine HCl (Benadryl) 25 mg PO BEDTIME PRN PRN Reason: Sleep Divalproex Sodium (Divalproex Sodium) 250 mg PO BIDMEALS [facility] Donepezil HCl (Aricept) 10 mg PO BEDTIME [facility] Last Admin: 12/06/18 01:27 Dose: Not Given Haloperidol Lactate (Haldol) 2 mg IM Q2H PRN PRN Reason: Agitation Last Admin: 12/06/18 09:10 Dose: 2 mg Melatonin (Melatonin) 9 mg PO BEDTIME [facility] Last Admin: 12/06/18 01:27 Dose: Not Given Memantine (Namenda) 10 mg PO DAILY [facility] Last Admin: 12/06/18 13:43 Dose: 10 mg Metoprolol Tartrate (Lopressor) 25 mg PO BID [facility] Last Admin: 12/06/18 13:42 Dose: 25 mg Potassium Chloride (Klor-Con M20) 20 meq PO DAILY [facility] Last Admin: 12/06/18 13:42 Dose: 20 meq Simvastatin (Zocor) 80 mg PO BEDTIME [facility] Last Admin: 12/06/18 01:27 Dose: Not Given Discontinued Medications Metoprolol Tartrate (Lopressor) 50 mg PO DAILY [facility] Nitroglycerin (Nitrostat) 0.4 mg SL ONETIME ONE Stop: 12/05/18 01:01 Last Admin: 12/05/18 01:09 Dose: 0.4 mg Potassium Chloride (Klor-Con M20) 20 meq PO ONETIME ONE Stop: 12/05/18 10:01 Last Admin: 12/05/18 09:41 Dose: 20 meq - Exam General: Reports: Alert, Mild Distress. Denies: Oriented, Cooperative Lungs: Reports: Clear to Auscultation, Normal Respiratory Effort Cardiovascular: Reports: Regular Rate, Regular Rhythm, No Murmurs GI/Abdominal Exam: Soft, Non-Tender, No Organomegaly, No Distention
[2018-12-06] MEDS: Divalproex Sodium Delayed-Release 250 MG Tab.CR PO SCH ×2 (17:58→20:32)
[2018-12-07] MEDS: Divalproex Sodium Delayed-Release 250 MG Tab.CR PO SCH (07:22)
[2018-12-07] MEDS: Metoprolol Tartrate 25 MG Tab PO SCH (08:45)
[2018-12-07] MEDS: Aspirin 81 MG Tab.EC PO SCH (08:46)
[2018-12-07] MEDS: Potassium Chloride 20 MEQ Tab.ER PO SCH (08:46)
[2018-12-07] MEDS: Memantine 10 MG Tab PO SCH (08:46)
[2018-12-07] MEDS: amLODIPine 5 MG Tab PO SCH (08:46)
== END 2018-12-07 13:35 | disposition home or self-care (01) ==
LOC: JP.ED 00:05 → JP.MS 03:18
PROVIDERS: ADMIT Internal Medicine; ATTEND Hospitalist
DX: G30.1 Alzheimer's disease with late onset (principal); F02.81 Dementia in other diseases classified elsewhere, unspecified severity, with behavioral disturbance; I10 Essential (primary) hypertension; J44.9 Chronic obstructive pulmonary disease, unspecified; Z79.82 Long term (current) use of aspirin; Z79.899 Other long term (current) drug therapy; Z88.8 Allergy status to other drugs, medicaments and biological substances; Z88.6 Allergy status to analgesic agent
CPT/HCPCS: 36415; 70450; 80048; 80053; 80305; 81001; 82140; 83605; 83690; 84443; 84484; 85025; 96372; 99285; A9270; G0378; G0480; J1630